=== PATIENT | female | born 1975 | race Caucasian/White ===

== ENCOUNTER → 2022-01-29 14:27 | Outpatient (CLI) | payer OTHER, SELFPAY ==
--- NOTE | ~2022-01-29 | CT_ITS ---
EXAMINATION: CT abdomen pelvis w con DATE: 01/29/2022 14:55 INDICATION: Postmenopausal bleeding. Ovarian cyst. TECHNIQUE: Computed tomography (CT) of the abdomen and pelvis was performed with 100 mL Omnipaque 350 intravenous contrast. Automated exposure control and iterative reconstruction technique were employe d. The dose-length product was 1010.65 mGy-cm. COMPARISON: None. FINDINGS: The visualized portions of the lung bases demonstrate mild atelectasis. No pleural effusion . The heart size is normal. No pericardial effusion. The liver, gallbladder, spleen, pancreas, adrena l glands, and kidneys are normal. There are no dilated loops of bowel. The appendix is normal. There are cysts in the low anterior uterus, which may be scarring from prior section (if the patie nt has that history). The ovaries are normal. There is mild lumbar spondylosis. IMPRESSION: 1. Normal ovaries. Reviewed, dictated and finalized at location A. IMPRESSION: 1. Normal ovaries.
[2022-01-29 14:45] LABS: Estimated Glomerular Filt Rate 60
== END ==
PROVIDERS: PCP Family Medicine; Visit Provider Family Medicine
DX: N95.0 Postmenopausal bleeding (principal)
CPT/HCPCS: 74177; Q9967